=== PATIENT | female | born 1945 | race Caucasian/White ===

== ENCOUNTER 2019-06-23 19:38 | Emergency (ER) | payer OTHER ==
[2019-06-23 19:52] VITALS: BP 151/69; PULSE 70; TEMP 98.7; BMI 22.3
--- NOTE | 2019-06-23 20:40 | PDOC ---
Documentation entered by Kendra Roca SCRIBE, acting as scribe for Bhavani Cohen MD. Bhavani Cohen MD: This documentation has been prepared by the macibe, Kendra Roca SCRIBE, under my direction and personally reviewed by me in its entirety. I confirm that the documentation accurately reflects all work , treatment, procedures, and medical decision making performed by me. History of Present Illness - General Chief Complaint: Pain, Acute Stated Complaint: PAIN TO LEFT FOOT Time Seen by Provider: 06/23/19 19:43 History Source: Patient Exam Limitations: No Limitations - History of Present Illness Initial Comments: 06/23/19 20:08 The patient is a 74-year-old female who presents to the emergency department with left foot pain. The patient presents with pain to the top of the left foot , thats expressed with ambulation, associated with swelling. Denies ankle pain. The patient is unsure whether she sprained or injured the foot, but states she was walking a lot in the city yesterday wearing crappy shoes. Denies falls. PAST MEDICAL HISTORY: Osteoporosis (on Prolia shot) PAST SURGICAL HISTORY: no significant history FAMILY HISTORY: no pertinent history SOCIAL HISTORY: Pt lives with family and is retired. MEDICATIONS: reviewed ALLERGIES: As per nursing notes General: No fevers or chills, no weakness, no weight loss HEENT: No change in vision. No sore throat,. No ear pain CardioVascular: No chest pain or shortness of breath Respiratory:No cough, or wheezing. Gastrointestinal: no nausea, vomiting, diarrhea or constipation, No rectal bleeding Genitourinary: No dysuria, hematuria, or frequency Musculoskeletal: +left foot pain with swelling. No joint or muscle pain or other swelling Neurologic: No headache, vertigo, dizziness or loss of consciousness Psychiatric: nor depression Skin: No rashes or easy bruising Endocrine: no increased thirst or abnormal weight change Allergic: no skin or latex allergy All other systems reviewed and normal GENERAL: The patient is awake, alert, and fully oriented, in no acute distress. HEAD: Normal with no signs of trauma. EYES: Pupils equal, round and reactive to light, extraocular movements intact, sclera anicteric, conjunctiva clear. EXTREMITIES: +left foot swelling dorsum of the foot, ecchymosis to the plantar surface medially. Tenderness to palpation over the dorsal of the foot medially, neurovascular intact. No deformities. Normal range of motion, no other edema. NEUROLOGICAL: Normal speech. PSYCH: Normal mood, normal affect. SKIN: Warm, Dry, normal turgor, no rashes or lesions noted. 06/23/19 20:19 Assessment and plan: This is 74-year-old female who comes in complaining of pain in her left foot. Patient said she was walking around the city and yesterday wearing shoes that gave her poor support and today developed pain swelling and some ecchymosis on her foot. X-ray interpreted by me shows nondisplaced fracture of the base of the second metatarsal Procedure note OCL posterior splint applied to the left foot and lower portion of the leg neurovascular post-splint application intact. Patient discharged, patient lives in [place] so will follow-up with her orthopedist when she gets back to [place] in about 4 days. Past History - Past Medical History Allergies/Adverse Reactions: Allergies Allergy/AdvReac Type Severity Reaction Status Date / Time codeine Allergy Verified 06/23/19 19:40 Home Medications: Ambulatory Orders Calcium Carbonate [Calcium] 0 mg PO DAILY 06/23/19 Denosumab [Prolia] 60 mg SQ Q6M 06/23/19 Levothyroxine [Synthroid -] 50 mcg PO DAILY 06/23/19 Pravastatin Sodium [Pravachol (Nf)] 20 mg PO HS 06/23/19 COPD: No Thyroid Disease: Yes Other medical history: OSTEOPOROSIS - Suicide/Smoking/Psychosocial Hx Smoking History: Never smoked Have you smoked in the past 12 months: No Information on smoking cessation initiated: No Hx Alcohol Use: No Drug/Substance Use Hx: No *Physical Exam - Vital Signs Last Vital Signs Temp Pulse Resp BP Pulse Ox 98.7 F 70 16 151/69 100 06/23/19 19:44 06/23/19 19:44 06/23/19 19:44 06/23/19 19:44 06/23/19 19:44 ED Treatment Course - RADIOLOGY Radiology Studies Ordered: Category Date Time Status FOOT-LEFT [RAD] Stat Radiology 06/23/19 19:53 Ordered *DC/Admit/Observation/Transfer Diagnosis at time of Disposition: Metatarsal stress fracture of left foot Qualifiers: Encounter type: initial encounter Qualified Code(s): M84.375A - Stress fracture , left foot, initial encounter for fracture - Discharge Dispostion Disposition: HOME Condition at time of disposition: Stable Decision to Admit order: No - Referrals - Patient Instructions Additional Instructions: Tylenol or Motrin as needed for pain. Leave splint in place until you see the orthopedist you get back to [place]. You can weight-bear as tolerated. Return to the emergency department immediately with ANY new, persistent or worsening symptoms. Continue any medications as previously prescribed by your physician. You should follow up with your primary doctor as soon as possible regarding today's emergency department visit. . Please make sure your doctor reviews the results of your emergency evaluation. Thank you for coming to the Emergency Department today for your care. It was a pleasure to see you today. Please note that your evaluation is INCOMPLETE until you follow-up with your doctor. - Post Discharge Activity
== END 2019-06-23 20:57 | disposition home or self-care (01) ==
LOC: FER 19:38
PROC: 2W3RX1Z Immobilization of Left Lower Leg using Splint (ICD-10-PCS; principal; 2019-06-23)
DX: M84.375A Stress fracture, left foot, initial encounter for fracture (principal); X58.XXXA Exposure to other specified factors, initial encounter; Y93.89 Activity, other specified; Y92.410 Unspecified street and highway as the place of occurrence of the external cause; E07.9 Disorder of thyroid, unspecified
CPT/HCPCS: 73630-TC-LT; 99281-25